=== PATIENT | female | born 1960 | race Caucasian/White ===

== ENCOUNTER → 2016-09-21 | Outpatient (CLI) | payer BC ==
[2016-09-21 14:25] LABS: ALT 55 U/L (9-52); AST 32 U/L (14-36); Alkaline Phosphatase 90 U/L (38-126); Anion Gap 12 mmol/L; Blood Urea Nitrogen 18 mg/dL (7-17); Calcium 9.7 mg/dL (8.4-10.2); Carbon Dioxide 25 mmol/L (22-30); Chloride 102 mmol/L (98-107); Glucose 98 mg/dL (74-99); Non-African American GFR(MDRD) >60 (>60 ml/min/1.73 sqM); Potassium 4.6 mmol/L (3.5-5.1); Sodium 139 mmol/L (137-145); Total Bilirubin 0.7 mg/dL (0.2-1.3); Total Protein 7.9 g/dL (6.3-8.2)
== END | disposition home or self-care (01) ==
LOC: LABWHC1 13:40
PROVIDERS: ATTEND Internal Medicine Endocrinology, Diabetes & Metabolism
DX: E03.8 Other specified hypothyroidism (principal); Z98.890 Other specified postprocedural states
CPT/HCPCS: 36415; 80053; 82306; 83970; 84443

== ENCOUNTER → 2019-06-10 | Outpatient (CLI) | payer OTHER ==
[2019-06-10 23:45] LABS: African American GFR (CKD) 94.2 (60.0-200.0); Albumin 4.3 g/dL (3.80-4.90); Albumin/Globulin Ratio 1.72 (1.60-3.17); Anion Gap 7.2 mmol/L (4.00-12.00); BUN/Creat Ratio 18.75 Ratio (12.00-20.00); Calcium 9.4 mg/dL (8.7-10.3); Carbon Dioxide 30.8 mmol/L (21.6-31.8); Globulin 2.5 g/dL (1.6-3.3); Non-African American GFR(CKD) 81.3 (60.0-200.0); Potassium 4.3 mmol/L (3.5-5.5); Total Bilirubin 0.3 mg/dL (0.2-1.2); Total Protein 6.8 g/dL (6.2-8.2)
== END | disposition home or self-care (01) ==
LOC: LABWHC1 14:38
PROVIDERS: ATTEND Internal Medicine Endocrinology, Diabetes & Metabolism
DX: E03.8 Other specified hypothyroidism (principal); E55.9 Vitamin D deficiency, unspecified; Z86.39 Personal history of other endocrine, nutritional and metabolic disease
CPT/HCPCS: 36415; 80053; 82306; 83970; 84443

== ENCOUNTER 2019-10-30 08:27 | Day surgery (SDC) | payer OTHER ==
[2019-10-28 12:43] VITALS: BMI 50.1
[~2019-10-30 08:27] MED LIST: LACTATED RINGERS 1,000 ML IV SCH; LIDOCAINE 1% (10MG/ML) FOR IV START INTRADERMA PRN
[2019-10-30 08:47] VITALS: TEMP 98
[2019-10-30] MEDS ORDERED: LIDOCAINE 1% INJ 10MG/ML (20 ML MDV) ONE (09:15)
[2019-10-30] MEDS ORDERED: PROPOFOL 10 MG/ML 20 ML VIAL IV ONE (09:15)
--- NOTE | 2019-10-30 09:31 | P.PCN ---
Date of Procedure: 10/30/19 Procedure(s) Performed: BRIEF HISTORY: Patient is a 59-year-old pleasant female scheduled for an elective colonoscopy as a part of screening for colorectal neoplasia. PROCEDURE PERFORMED: Colonoscopy with biopsy. PREOPERATIVE DIAGNOSIS: Screening for colon cancer. IV sedation per Anesthesia. PROCEDURE: After informed consent was obtained, the patient, was brought into the endoscopy unit. IV sedation was administered by Anesthesia under continuous monitoring. Digital rectal examination was normal. Initially the Olympus CF-160 flexible video colonoscope was then inserted in the rectum, gradually advanced into the cecum without any difficulty. Careful examination was performed as the scope was gradually being withdrawn. Ileocecal valve and the appendiceal orifice were visualized and appeared normal. Prep was excellent. Mucosa of the cecum, ascending colon, appeared normal. In the transverse colon there was a 2 mm polyp that was removed by cold biopsy. Rest of the transverse colon, descending colon, sigmoid colon, and rectum appeared normal. In the proximal rectum there was a 4 mm polyp that was removed by cold biopsy. Retroflexion was performed in the rectum and no lesions were seen. The patient tolerated the procedure well. IMPRESSION: 2 mm transverse colon polyp status post removal by cold biopsy 4 mm proximal rectal polyp status post cold biopsy Rest of the colon appeared normal RECOMMENDATIONS: Findings of this examination were discussed with the patient as well as her family. She was advised to follow with the biopsy results. If the biopsy shows an adenoma she can have a repeat colonoscopy in 5 years.
[2019-10-30 09:34] VITALS: RESP 16
[2019-10-30 09:57] VITALS: BP 105/66; PULSE 85
== END 2019-10-30 10:10 | disposition home or self-care (01) ==
LOC: ORWHC2ENDO 08:27
PROVIDERS: ATTEND Internal Medicine Gastroenterology
DX: Z12.11 Encounter for screening for malignant neoplasm of colon (principal); K63.5 Polyp of colon; K62.1 Rectal polyp; I10 Essential (primary) hypertension; Z79.899 Other long term (current) drug therapy
CPT/HCPCS: 88305; 45380; J2001; J2704

== ENCOUNTER → 2019-12-14 | Outpatient (CLI) | payer OTHER | END | disposition home or self-care (01) | LOC: LABWHC1 10:24 | PROVIDERS: ATTEND Internal Medicine Endocrinology, Diabetes & Metabolism | DX: E03.8 Other specified hypothyroidism (principal) | CPT/HCPCS: 36415; 84443 ==

== ENCOUNTER → 2020-04-25 | Outpatient (CLI) | payer OTHER ==
--- NOTE | 2020-04-27 09:50 | MM ---
Reason for exam: screening (asymptomatic). Last mammogram was performed 1 year and 3 months ago. History: Patient is postmenopausal. Taking unspecified hormones for 10 years beginning at age 36. Physical Findings: A clinical breast exam by your physician is recommended on an annual basis and results should be correlated with mammographic findings. MG 3D Screening Mammo W/Cad Bilateral CC and MLO view(s) were taken. Prior study comparison: January 23, 2019, mammogram, performed at [facility]. November 08, 2017, mammogram, performed at [facility]. There are scattered fibroglandular densities. There is chronic nodularity bilaterally. Benign secretory calcifications bilaterally. No significant changes when compared with prior studies. ASSESSMENT: Benign, BI-RAD 2 RECOMMENDATION: Routine screening mammogram of both breasts in 1 year.
== END | disposition home or self-care (01) ==
LOC: RADMAMWWP 11:10
PROVIDERS: ATTEND Obstetrics & Gynecology
DX: Z12.31 Encounter for screening mammogram for malignant neoplasm of breast (principal)
CPT/HCPCS: 77063; 77067

== ENCOUNTER → 2020-06-21 | Outpatient (CLI) | payer OTHER ==
[2020-06-21 15:52] LABS: African American GFR (CKD) 71.4 (60.0-200.0); Albumin 4.3 g/dL (3.80-4.90); Albumin/Globulin Ratio 1.48 (1.60-3.17); Anion Gap 7.6 mmol/L (4.00-12.00); Calcium 9.3 mg/dL (8.7-10.3); Carbon Dioxide 27.4 mmol/L (21.6-31.8); Globulin 2.9 g/dL (1.6-3.3); Non-African American GFR(CKD) 61.6 (60.0-200.0); Total Bilirubin 0.4 mg/dL (0.2-1.2); Total Protein 7.2 g/dL (6.2-8.2)
== END | disposition home or self-care (01) ==
LOC: LABWHC1 07:25
PROVIDERS: ATTEND Internal Medicine Endocrinology, Diabetes & Metabolism
DX: E03.9 Hypothyroidism, unspecified (principal); E55.9 Vitamin D deficiency, unspecified; Z86.39 Personal history of other endocrine, nutritional and metabolic disease
CPT/HCPCS: 36415; 80053; 82306; 83970; 84443

== ENCOUNTER → 2020-10-26 | Outpatient (CLI) | payer OTHER ==
[2020-10-26 09:16] LABS: ALT 32 U/L (4-34); AST 32 U/L (14-36); African American GFR (CKD) >90 (>60 ml/min/1.73 sqM); Albumin 4.1 g/dL (3.5-5.0); Alkaline Phosphatase 81 U/L (38-126); Anion Gap 9 mmol/L; Blood Urea Nitrogen 17 mg/dL (7-17); Calcium 9.7 mg/dL (8.4-10.2); Carbon Dioxide 28 mmol/L (22-30); Chloride 102 mmol/L (98-107); Glucose 111 mg/dL (74-99); Non-African American GFR(CKD) >90 (>60 ml/min/1.73 sqM); Potassium 4.4 mmol/L (3.5-5.1); Sodium 139 mmol/L (137-145); Total Bilirubin 0.5 mg/dL (0.2-1.3); Total Protein 7.2 g/dL (6.3-8.2)
--- NOTE | 2020-10-26 16:28 | XR ---
EXAMINATION TYPE: XR lumbosacral spine min 4V DATE OF EXAM: 10/26/2020 CLINICAL HISTORY: Right lower back pain TECHNIQUE: Frontal, lateral, and oblique images of the lumbar spine are obtained. COMPARISON: None FINDINGS: There are 5 lumbar type vertebral bodies identified. The lumbar spine shows satisfactory alignment without evidence of acute fracture or dislocation. Vertebral body heights and disk space he ights are within normal limits. There is minimal endplate sclerosis and lower lumbar facet arthropath y of the lower lumbar spine with osteophytosis at L5-S1. IMPRESSION: Lower lumbar disc disease and osteoarthritic changes.
--- NOTE | 2020-10-27 07:20 | BD ---
EXAMINATION TYPE: Axial Bone Density DATE OF EXAM: 10/26/2020 COMPARISON: 09/13/2014 CLINICAL HISTORY: Loss of height Height: 62.5 IN Weight: 278 LBS RISK FACTORS HISTORY OF: Family History of Osteoporosis: YES Active: MODERATE Postmenopausal woman: ABLATION AGE 45 MEDICATIONS: Thyroid Medications: YES Which medication: TIROSENT How Lon+ YEARS Additional Medications: VIT D TWICE PER MONTH, TIROSENT, LISINOPRIL, ZOLOFT, WATER PILL EXAM MEASUREMENTS: Bone mineral densitometry was performed using the [facility]. Bone mineral density as measured about the Lumbar spine is: ----- L1-L4(G/cm2): 1.337 T Score Values are as follows: ----- L2: -0.3 ----- L3: 1.0 ----- L4: 2.7 ----- L1-L4: 1.3 Bone mineral density has: Increased 9.1% since study of: 09/13/2014 Bone mineral density about the R hip (g/cm2): 1.022 Bone mineral density about the L hip (g/cm2): 1.092 T Score values are as follows: -----R Neck: -0.1 -----L Neck: 0.4 -----R Total: 0.8 -----L Total: 1.0 Bone mineral density has: Increased 0.4% since study of: 09/13/2014 IMPRESSION: Normal bone mineral density. NOTE: T-SCORE=SD OF THE YOUNG ADULT MEAN.
== END | disposition home or self-care (01) ==
LOC: RADBDWWP 07:13
PROVIDERS: ATTEND Internal Medicine Endocrinology, Diabetes & Metabolism
DX: M51.36 Other intervertebral disc degeneration, lumbar region (principal); M47.816 Spondylosis without myelopathy or radiculopathy, lumbar region
CPT/HCPCS: 72110; 77080; 80053; 82306; 83970; 84443; 84480

== ENCOUNTER → 2021-09-27 | Outpatient (CLI) | payer OTHER ==
--- NOTE | 2021-10-03 13:44 | MM ---
Reason for Exam: Screening (asymptomatic). Last mammogram was performed 1 year(s) and 5 month(s) ago. Patient History: Menarche at age 11. First Full-Term at age 21. Postmenopausal. Currently using Unspecified Hormone, beginning at age 36 for 10 years. Sister had breast cancer at or over age 50. Risk Values: Neva 5 year model risk: 3.1%. NCI Lifetime model risk: 14.4%. Prior Study Comparison: 11/08/2017 Screening Mammogram, [facility]. 01/23/2019 Screening Mammogram, [facility]. 04/25/2020 Bilateral Screening Mammogram, [facility]. Tissue Density: There are scattered fibroglandular densities. Findings: Analyzed By CAD. There are scattered benign-appearing round and linear calcifications redemonstrated throughout both breasts. There is no suspicious group of microcalcifications or new suspicious mass in either breast. Overall Assessment: Benign, BI-RAD 2 Management: Screening Mammogram of both breasts in 1 year. A clinical breast exam by your physician is recommended on an annual basis and results should be correlated with mammographic findings. Electronically signed and approved by: Pineda Gary M.D.
== END | disposition home or self-care (01) ==
LOC: RADMAMWWP 09:57
PROVIDERS: ATTEND Internal Medicine
DX: Z12.31 Encounter for screening mammogram for malignant neoplasm of breast (principal); Z80.3 Family history of malignant neoplasm of breast
CPT/HCPCS: 77063; 77067

== ENCOUNTER → 2021-11-25 | Outpatient (CLI) | payer OTHER ==
[2021-11-25 18:24] LABS: African American GFR (CKD) 108.4 (60.0-200.0); Albumin 4.3 g/dL (3.8-4.9); Albumin/Globulin Ratio 1.39 (1.60-3.17); Anion Gap 11.5 mmol/L (10.00-18.00); BUN/Creat Ratio 24.14 Ratio (12.00-20.00); Blood Urea Nitrogen 16.9 mg/dL (9.0-27.0); Calcium 9.6 mg/dL (8.7-10.3); Carbon Dioxide 26.5 mmol/L (20.0-27.5); Globulin 3.1 g/dL (1.6-3.3); Non-African American GFR(CKD) 93.5 (60.0-200.0); Potassium 4.4 mmol/L (3.5-5.5); Total Bilirubin 0.3 mg/dL (0.30-1.20); Total Protein 7.4 g/dL (6.2-8.2)
== END | disposition home or self-care (01) ==
LOC: LABWHC1 10:49
PROVIDERS: ATTEND Internal Medicine Endocrinology, Diabetes & Metabolism
DX: E03.8 Other specified hypothyroidism (principal); E55.9 Vitamin D deficiency, unspecified
CPT/HCPCS: 36415; 80053; 82306; 83970; 84443

== ENCOUNTER 2021-12-19 05:58 | Observation (INO) | payer OTHER ==
[2021-12-14 13:51] VITALS: BMI 47.2
--- NOTE | 2021-12-18 09:10 | P.HPOR ---
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 She's tried conservative treatment with persistence of her symptoms. She has a difficult time with normal weightbearing activities. Review of Systems As per HPI Past Medical History Past Medical History: Hypertension, Osteoarthritis (OA), Thyroid Disorder History of Any Multi-Drug Resistant Organisms: None Reported Past Surgical History: Section, Cholecystectomy, Tonsillectomy Additional Past Surgical History / Comment(s): COLONOSCOPY, PARATHYROID SX, C/S X2 Past Anesthesia/Blood Transfusion Reactions: No Reported Reaction Smoking Status: Never smoker - Past Family History Mother Family Medical History: No Reported History Sister(s) Family Medical History: Cancer Medications and Allergies Home Medications Medication Instructions Recorded Confirmed Type Levothyroxine Sodium [Tirosint] 150 mcg PO DAILY 10/28/19 12/14/21 History Lisinopril-Hctz 10-12.5 mg 1 tab PO DAILY 10/28/19 12/14/21 History [Zestoretic 10-12.5] Sertraline [Zoloft] 50 mg PO DAILY 10/28/19 12/14/21 History Biofreeze(Dose Unknown) 1 applicate TOPICAL DIRECTED PRN 12/14/21 12/14/21 History Ergocalciferol [Vitamin D2 (1250 1,250 mcg PO QMONTHLY 12/14/21 12/14/21 History Mcg = [id number] Iu)] Ibuprofen 800 mg PO Q8H PRN 12/14/21 12/14/21 History Allergies Allergy/AdvReac Type Severity Reaction Status Date / Time No Known Allergies Allergy Verified 12/14/21 13:39 Physical Examination - Knee right Appearance: effusion, varus alignment in stance Effusion grade: grade 2 Tenderness with palpation: anterior, medial Pain: throughout ROM Gait: limping ROM: extension: -10 degrees ROM: flexion: 100 degrees Strength: extension: 5/5 Strength: flexion: 5/5 Meniscal tests: medial meniscal tests: positive Results Patient is a well-developed well-nourished female of endomorphic habitus. She is a proximally 5 foot 2, 270 pounds. HEENT exam is nonfocal, neck is supple. She has painless passive motion of the right hip. Straight leg raise is negative. Active motion right knee -12/104 of flexion. Collaterals are stable, Tracy's negative, Chucho's is equivocal. Her distal neurovascular appears intact in the right lower extremity. - Diagnostic results Knee x-ray: image reviewed (3 views of the right knee obtain the office show severe medial and patellofemoral compartment narrowing with subchondral sclerosis and [id number] changes.) Assessment and Plan Assessment: Right knee severe medial and patellofemoral compartment osteoarthrosis Obesity Plan: I talked to the patient at length regarding her condition along with treatment options. At this point she is quite limited because of pain related to her osteoarthrosis despite previous conservative measures. After thorough discussion she opts to proceed with surgery. We will plan to proceed with right total knee arthroplasty. We will institute DVT prophylaxis postoperatively. Time with Patient: Less than 30
[~2021-12-19 05:58] MED LIST changes: +ACETAMINOPHEN TAB 500 MG TAB PO PRN; +HYDROmorphone 0.5 MG/0.5 ML SYRINGE IVP PRN; -LACTATED RINGERS 1,000 ML IV SCH; +MELOXICAM 7.5 MG TAB PO PRN; +ONDANSETRON 4 MG/2 ML VIAL IVP ONE; +TRANEXAMIC ACID IN NACL,ISO-OS 1,000 MG in SALINE 1 100ML.BAG IVPB PRN; +ceFAZolin 3 GM in SODIUM CHLORIDE 0.9% 100 ML IVPB PRN
[2021-12-19] MEDS: LACTATED RINGERS 1,000 ML IV SCH (06:55)
[2021-12-19] MEDS ORDERED: DEXAMETHASONE SOD PHOSPHATE 4 MG/ML 1 ML VIAL IVP ONE (06:56)
[2021-12-19] MEDS ORDERED: fentaNYL (PF) 50 MCG/ML 2 ML AMP IVP ONE (07:07)
[2021-12-19] MEDS ORDERED: MIDAZOLAM 2 MG/2 ML VIAL IVP ONE (07:07)
[2021-12-19] MEDS ORDERED: TRANEXAMIC ACID IN NACL,ISO-OS 1,000 MG/100 ML BAG ONE (07:40)
[2021-12-19] MEDS ORDERED: SODIUM CHLORIDE 0.9% (PF) 10 ML VIAL ONE (07:40)
[2021-12-19] MEDS ORDERED: ROPIVACAINE 5 MG/ML 30 ML VIAL ONE (07:40)
[2021-12-19] MEDS ORDERED: PROPOFOL 10 MG/ML 20 ML VIAL IV ONE (07:40)
[2021-12-19] MEDS ORDERED: HYDROmorphone (PF) 1 MG/ML ONE (07:40)
[2021-12-19] MEDS ORDERED: PHENYLEPHRINE-0.9% NACL SYG 1,000 MCG/10 ML SYRINGE ONE (07:40)
[2021-12-19] MEDS ORDERED: LIDOCAINE 2% INJ 20 MG/ML (2 ML VIAL) ONE (07:40)
[2021-12-19] MEDS ORDERED: MIDAZOLAM 2 MG/2 ML VIAL ONE (07:40)
--- NOTE | 2021-12-19 09:02 | P.ANPRN ---
Procedure Note - Anesthesia - Nerve Block Performed Right Adductor Canal Infusion Time Out Performed: Yes (07) Date of Procedure: 12/19/21 Procedure Start Time: :07 Procedure Stop Time: 07:12 Location of Patient: PreOp Indication: Acute Post-Operative Pain, Requested by Surgeon Specifically requested for management of pain by DrTameka: Oni Muse Sedation Type: Sedate with meaningful contact maintained Preparation: Sterile Prep, Sterile Dressing Position: Supine Catheter Depth at Skin (cm): 9 Catheter: Indwelling Needle Types: Pajunk Needle Gauge: Other (see comment) (16) Ultrasound used to visualize needle placement: Yes Ultrasound used to observe medication spread: Yes Injectate: 0.5% Ropivacaine (see comment for volume) (15cc + 5cc nacl pf) Blood Aspirated: No Pain Paresthesia on Injection Noted: No Resistance on Injection: Normal Image Stored and Saved: Yes Events: Uneventful and Well Tolerated
--- NOTE | 2021-12-19 09:03 | P.ANPRN ---
Procedure Note - Anesthesia - Nerve Block Performed Right iPack Single Time Out Performed: Yes (705) Date of Procedure: 12/19/21 Procedure Start Time: 07:13 Procedure Stop Time: 07:17 Location of Patient: PreOp Indication: Acute Post-Operative Pain, Requested by Surgeon Specifically requested for management of pain by DrTameka: Oni Muse Sedation Type: Sedate with meaningful contact maintained Preparation: Sterile Prep Position: Supine Catheter: None Needle Types: Pajunk Needle Gauge: 21 Ultrasound used to visualize needle placement: Yes Ultrasound used to observe medication spread: Yes Injectate: 0.5% Ropivacaine (see comment for volume) (15cc + 5cc nacl pf) Blood Aspirated: No Pain Paresthesia on Injection Noted: No Resistance on Injection: Normal Image Stored and Saved: Yes Events: Uneventful and Well Tolerated
[2021-12-19] MEDS ORDERED: NALOXONE 0.4 MG/ML 1 ML VIAL IV PRN (09:16)
[2021-12-19] MEDS ORDERED: MAGNESIUM HYDROXIDE 2,400 MG/10 ML CUP PO PRN (09:16)
[2021-12-19] MEDS ORDERED: HYDROcodone/APAP 5-325MG 1 EACH TAB PO PRN (09:16)
[2021-12-19] MEDS ORDERED: ONDANSETRON 4 MG/2 ML VIAL IVP PRN (09:16)
[2021-12-19] MEDS ORDERED: LACTATED RINGERS 1,000 ML IV ONE (09:29)
--- NOTE | 2021-12-19 09:43 | P.OP ---
Date of Procedure: 12/19/21 Preoperative Diagnosis: Right knee severe tricompartmental osteoarthrosis Postoperative Diagnosis: Same Procedure(s) Performed: Right total knee arthroplastycementedposterior stabilized Implants: Depuy Attune size 5 narrow cemented femoral component, size 4 cemented tibial component, 10 mm articular surface, 32 mm cemented patellar component. This is a posterior stabilized implant. Anesthesia: regional, spinal Surgeon: Ayden Roberts Umbrella Tipper Machine #1: Edmond Ziegler Estimated Blood Loss (ml): 50 Pathology: other (Bone fragments) Condition: stable Disposition: PACU Indications for Procedure: The patient's a 61-year-old female who presents with progressive right knee pain secondary to osteoarthrosis despite conservative treatment. A thorough discussion of the risks and benefits of operative intervention versus continued conservative measures was made with patient. She opted to proceed with surgery. Operative risks to include infection, neurovascular injury, development of blood clots, fracture, possible component loosening/failure need for subsequent procedures was discussed. Informed consent was obtained. Operative Findings: As below Description of Procedure: The patient was brought to the operating room, and after induction of spinal anesthesia the right lower extremity was prepped and draped in a normal fashion. The tourniquet was inflated to 270 mm marker. A longitudinal incision extending 3 finger breaths above the superior pole of patella extending to the medial aspect the tibial tubercle was then made. The skin and subcutaneous tis sues were divided sharply. Electrocautery was used for hemostasis. A medial parapatellar arthrotomy was performed. The medial soft tissues to include the superficial and deep portions of the medial collateral ligament were elevated subperiosteally. The patella was everted. A portion of the retropatellar fat pad was excised sharply. The anterior cruciate ligament was sacrificed. Blunt retractors were placed. A starting hole was made in the distal femur 1 cm anterior to the posterior cruciate ligament origin. An intramedullary femoral guide was then inserted planning on 5 valgus distal cut with 9 mm distal resection. The cutting block was pinned in place. The distal cut was then made. The posterior referencing sizing guide was utilized. I felt size 5 narrow was most appropriate. 3 of external rotation was built into the system and verified off the trans-epicondylar axis and the posterior condyles. The cutting block was pinned in place. The anterior, posterior, and chamfer cuts then made. Bone fragments were removed. The intercondylar guide was placed and the notch cut was made with a sagittal saw. The bone block was removed in one fragment. The trial component was then placed. There is good anterior to posterior and medial to lateral fit. The distal peg holes were drilled. The trial component was removed. Attention was then paid towards preparing the pro ximal femur. An extra medullary guide was utilized in line with the tibial shaft and second metatarsal distally. I planned on 2 mm resection from the medial compartment. The cutting block was pinned in place. The proximal tibial cut was then made. The bone was removed in one fragment. The remnants of the medial and lateral menisci were excised at the capsular junction with electrocautery. The tibia sized most appropriately at size 4. The trial femoral and tibial components were placed along with a 10 mm articular surface. I was able to obtain full flexion and extension with internal and external rotation. After several flexion and extension cycles, the tibial rotation was marked with electrocautery line with the medial one third of the tibial tubercle. Attention was then paid towards preparing the patella. A patella reamer was utilized taking stem to 14 mm of bone stock. A good flush cut was made. The patella sized most appropriately 32 mm. The peg holes were drilled. The trial components placed. I had good patellofemoral tracking with no hands technique. The trial components were then removed. The tibia was prepared in the appropriate rotation with appropriate drill and keel punch. The posterior osteophytes were removed with a curved osteotome. The flexion and extension gaps were checked and felt to be symmetric at 10 mm. A trial components were then removed. The bony surfaces were prepared with pulsatile lavage and dried. The tibial component was then cemented place was fully seated. Excess cement was removed. The femoral component cemented place and was fully seated. Excess cement was removed. The trial 10 mm articular surface was placed and the knee was put in full extension. The patella component was cemented place. After the cement had sufficiently hardened, the knee was again taken through a range of motion. Again I was able to obtain full flexion and extension with varus and valgus stress. The trial 10 mm articular surface was removed and the final one inserted. This was fully seated. Care was taken to avoid any soft tissue interposition. Pulsatile lavage was again utilized. The medial parapatellar arthrotomy was closed with #2 Ethibond suture. The tourniquet was deflated with approximately 60 minutes total tourniquet time. Final hemostasis was obtained with the cautery. There was minimal bleeding therefore a deep drain was not placed. The subcutaneous tissues were reapproximated with interrupted 2-0 Vicryl sutures. The skin was reapproximated with 3-0 subcuticular strata fix suture. Skin tape and adhesive was applied. A sterile dressing was applied. The patient was awoken from sedation and transferred to recovery room in good condition. Blood loss was estimated at 50 mL. No complications were incurred. Sponge and needle counts were correct at the end of the case. Feroz GABRIEL assisted during the major components of this case to include exposure, bone resection, implantation, and closure.
[2021-12-19] MEDS ORDERED: ROPIVACAINE 0.2%-NS ON-Q PUMP 2 MG/ML EACH MISCELLANE ONE (10:07)
--- NOTE | 2021-12-19 10:20 | XR ---
EXAMINATION TYPE: XR knee limited RT DATE OF EXAM: 12/19/2021 CLINICAL HISTORY: Right knee pain and arthritis status post total knee replacement. TECHNIQUE: Portable AP and crosstable lateral views of the right knee are obtained immediately posto peratively. COMPARISON: None FINDINGS: Metallic hardware from total right knee arthroplasty is seen and appears satisfactory in a lignment and position. There is evidence of recent surgery with diffuse subcutaneous gas and soft ti ssue swelling noted. IMPRESSION: METALLIC HARDWARE FROM TOTAL RIGHT KNEE ARTHROPLASTY IS SATISFACTORY IN ALIGNMENT.
[2021-12-19] MEDS: HYDROmorphone 0.5 MG/0.5 ML SYRINGE IVP PRN (19:45)
[2021-12-19] MEDS: HYDROmorphone 1 MG/ML 1 ML SYRINGE IVP PRN (22:30)
[2021-12-19] MEDS: ceFAZolin 3 GM in SODIUM CHLORIDE 0.9% 100 ML IVPB SCH (22:30)
[2021-12-19] MEDS: SENNOSIDES-DOCUSATE SODIUM 1 EACH TAB PO SCH (22:31)
[2021-12-20] MEDS: HYDROcodone/APAP 7.5-325MG 1 EACH TAB PO PRN ×4 (02:11→20:55)
[2021-12-20] MEDS: ceFAZolin 3 GM in SODIUM CHLORIDE 0.9% 100 ML IVPB SCH (04:44)
[2021-12-20] MEDS: LACTATED RINGERS 1,000 ML IV SCH (04:45)
[2021-12-20] MEDS: HYDROmorphone 1 MG/ML 1 ML SYRINGE IVP PRN (06:19)
--- NOTE | 2021-12-20 07:41 | P.PN ---
Progress Note - Text Progress Note Date: 12/20/21 patient was seen and evaluated at bedside. Status post postoperative day 1 for right total knee arthroplasty patient had adductor canal catheter for postop pain control. Patient rated pain at rest 6 out of 10 in severity. Patient describes pain is aching, throbbing type on the sides of the knee and back of the knee. Patient started walking with support. With activity patient pain levels are 6-8 out of 10 in severity. With the help of oral pain medications pain levels are tolerable. Patient denied any weakness/ numbness in lower extremities. patient denied any fever, pain over the catheter site. Physical exam: Patient vital signs stable Patient is alert awake oriented 3 responding to all questions appropriately Examination of the catheter site showed dressing intact, no leaking fluid around the catheter, no redness, no tenderness over the catheter insertion area. plan: status post postoperative day 1 for right total knee arthroplasty with adductor canal catheter for pain control. Patient was discussed to continue the medication at the rate of 8 mL per hour until the pump is completely empty and instructed the patient how to discontinue the catheter.
[2021-12-20] MEDS: RIVAROXABAN 10 MG TAB PO SCH (07:54)
--- NOTE | 2021-12-20 10:24 | P.PN ---
Subjective Progress Note Date: 12/20/21 Principal diagnosis: Status post right total knee arthroplasty Patient was evaluated today at bedside, she is resting in her hospital chair. Patient is complaining of some increasing pain today, she has required the use of IV Dilaudid. She did okay with physical therapy, she's been utilizing a walker. She is urinating with no difficulty. She currently denies any headaches, lightheadedness, chest pain or shortness of breath. Objective - Vital Signs Vital signs: Vital Signs Temp 98.4 F 12/20/21 07:26 Pulse 97 12/20/21 07:26 Resp 17 12/20/21 07:26 BP 101/68 12/20/21 07:26 Pulse Ox 91 L 12/20/21 07:26 FiO2 Intake & Output 12/19/21 12/20/21 12/20/21 18:59 06:59 18:59 Intake Total 900 Output Total 50 Balance 850 Intake: IV 900 Output: Estimated Blood Loss 50 Other: Voiding Method Toilet # Voids 1 - Exam Right lower extremity : Incision is clean, dry, and intact. The exofin fusion tape is in good condition. There is minimal soft tissue swelling and ecchymosis surrounding the medial and lateral aspects of the incision. Calf is soft, no tenderness with palpation. Plantar flexion, dorsiflexion, EHL, FHL are intact. Sensory exam to light touch throughout the extremity is intact, dorsal pedis pulses 2+. Assessment and Plan Assessment: Postoperative day #1 status post right total knee arthroplasty Plan: Pain control, continue with oral [place]. Okay used Dilaudid as needed for severe breakthrough pain DVT prophylaxis, continue Xarelto 10 mg daily during hospital stay Icing and elevating techniques discussed Encourage incentive spirometer Continue PT/OT, weight-bear as tolerated with walker Medical recommendations Discharge planning: Due to patient's pain control, will plan to keep patient overnight with hopeful discharge on 12/21/2021 Time with Patient: Less than 30
[2021-12-20 10:29] LABS: Basophils # (A) 0.02 X 10*3/uL (0.00-0.10); Basophils % (A) 0.2 %; Eosinophils # (A) 0.03 X 10*3/uL (0.04-0.35); Eosinophils % (A) 0.3 %; HCT 36.3 % (37.2-46.3); HGB 11.7 g/dL (12.0-15.0); Immature Grans, Automated 0.4 %; Lymphocytes # (A) 2.09 X 10*3/uL (0.90-5.00); Lymphocytes % (A) 19.6 %; MCHC 32.2 g/dL (32.0-37.0); MCV 90.1 fL (80.0-97.0); Monocytes # (A) 0.91 X 10*3/uL (0.20-1.00); Monocytes % (A) 8.6 %; NRBC Per 100 WBC 0 /100 WBCS (0.0-0.0); Neutrophils # (A) 7.55 X 10*3/uL (1.80-7.70); Neutrophils % (A) 70.9 %; Platelet Count 291 X 10*3/uL (140-440); RBC 4.03 X 10*6/uL (4.10-5.20); RDW 12.7 % (11.5-14.5); WBC 10.64 X 10*3/uL (4.50-10.00)
[2021-12-20] MEDS: HYDROmorphone 0.5 MG/0.5 ML SYRINGE IVP PRN ×2 (11:00→19:26)
[2021-12-20] MEDS ORDERED: METHYL SALICYLATE/MENTHOL CREAM 5 OZ TOPICAL PRN (14:35)
[2021-12-20] MEDS ORDERED: ERGOCALCIFEROL 1,250 MCG (50,000 IU) CAPSULE PO SCH (15:00)
--- NOTE | 2021-12-20 16:04 | P.CONS ---
History of Present Illness - Reason for Consult Consult date: 12/20/21 Medical management postop right knee arthroplasty - History of Present Illness This is a pleasant 61-year-old female who follows with Dr. Peterson in the outpatient setting as her primary care provider and was recently admitted under orthopedic services for elective right total knee arthroplasty and is being closely monitored. Patient reports a past medical history of hypertension, hypothyroidism, and anxiety and follows with Dr. Peterson outpatient. Patient did to her presurgical clearance with her primary care provider prior to surgery. Patient was able to work with physical therapy today with some increasing pain and is being evaluated and monitored overnight with possible discharge in 24 hours. Recommend resuming home medications and monitoring vital signs closely. Incentive spirometer encouraged at least 10 times every hour while awake. Recommend physical therapy working daily with possible discharge in 24 hours. Recommend outpatient follow-up with primary care provider on discharge. WBC mildly elevated at 10.6 for most likely reactive as patient is afebrile denies chest pain or shortness of breath. Patient denies dysuria or pain with urination. Review of systems: Constitutional: No reports of fatigue, fever, or chills Cardiovascular: No reports of chest pain or palpitations Respiratory: No reports of shortness of breath or cough GI: No reports of nausea, no reports of of vomiting, reports passing some gas no bowel movement : No reports of dysuria or retention Neurovascular: reports of generalized weakness, and some right knee pain All medications have been reviewed Active Medications Hydrocodone Bitart/Acetaminophen (Hydrocodone/Apap 5-325mg 1 Each Tab) 1 each PO Q6HR PRN PRN Reason: Pain Scale 1 to 5 Stop: 01/18/22 09:17 Hydrocodone Bitart/Acetaminophen (Hydrocodone/Apap 7.5-325mg 1 Each Tab) 1 each PO Q6H PRN PRN Reason: Pain Scale 6 to 7 Stop: 01/18/22 09:17 Hydrocodone Bitart/Acetaminophen (Hydrocodone/Apap 7.5-325mg 1 Each Tab) 2 each PO Q6H PRN PRN Reason: Pain Scale 8-10 Last Admin: 12/20/21 13:07 Dose: 2 each Ergocalciferol (Ergocalciferol 1,250 Mcg (50,000 Iu) Capsule) 1,250 mcg PO QMONTHLY [facility] Lisinopril/HCTZ (Lisinopril-Hctz -.5 Mg 1 Each Tab) 1 each PO DAILY [facility] Hydromorphone HCl (Hydromorphone 0.5 Mg/0.5 Ml Syringe) 0.5 mg IVP Q3HR PRN PRN Reason: Pain Scale 4 to 6 Stop: 01/18/22 09:17 Last Admin: 12/20/21 11:00 Dose: 0.5 mg Hydromorphone HCl (Hydromorphone 1 Mg/Ml 1 Ml Syringe) 1 mg IVP Q3HR PRN PRN Reason: Pain Scale 7 to 10 Stop: 01/18/22 09:17 Last Admin: 12/20/21 06:19 Dose: 1 mg Lactated Ringer's (Lactated Ringers) 1,000 mls @ 20 mls/hr IV .Q24H [facility] Stop: 01/18/22 05:39 Last Admin: 12/20/21 04:45 Dose: Not Given Levothyroxine Sodium (Levothyroxine 75 Mcg Tab) 150 mcg PO DAILY@0630 [facility] Lidocaine HCl (Lidocaine 1% (10mg/Ml) For Iv Start) 0.1 ml INTRADERMA PER PROTOCOL PRN PRN Reason: IV Start Stop: 01/18/22 05:39 Magnesium Hydroxide (Magnesium Hydroxide 2,400 Mg/10 Ml Cup) 2,400 mg PO DAILY PRN PRN Reason: Constipation Stop: 01/18/22 09:17 Methyl Salicylate (Methyl Salicylate/Menthol Cream 5 Oz) 1 applic TOPICAL DAILY PRN PRN Reason: Pain Naloxone HCl (Naloxone 0.4 Mg/Ml 1 Ml Vial) 0.2 mg IV Q2M PRN PRN Reason: Opioid Reversal Stop: 01/18/22 09:17 Ondansetron HCl (Ondansetron 4 Mg/2 Ml Vial) 4 mg IVP Q8HR PRN PRN Reason: Nausea And Vomiting Stop: 01/18/22 09:17 Rivaroxaban (Rivaroxaban 10 Mg Tab) 10 mg PO DAILY [facility]; Protocol Stop: 01/01/22 09:01 Last Admin: 12/20/21 07:54 Dose: 10 mg Senna/Docusate Sodium (Sennosides-Docusate Sodium 1 Each Tab) 2 each PO HS [facility] Stop: 01/18/22 21:01 Last Admin: 12/19/21 22:31 Dose: 2 each Sertraline HCl (Sertraline 50 Mg Tab) 50 mg PO DAILY [facility] PHYSICAL EXAMINATION: GENERAL: The patient is alert and oriented x4, Well developed, well nourished. Morbidly obese HEENT: Pupils are round and equally reacting to light. EOMI. no scleral icterus. No conjunctival pallor. Normocephalic, atraumatic. No pharyngeal erythema. No thyromegaly. CARDIOVASCULAR: S1 and S2 muffled PULMONARY: diminished breath sounds bilaterally with no wheezing or rhonchi noted. ABDOMEN: soft. Nontender on exam. obese. non-distended, normoactive bowel sounds. No palpable organomegaly. MUSCULOSKELETAL: No joint swelling or deformity. EXTREMITIES: No cyanosis, clubbing, or pedal edema. Right knee dressing is currently dry and intact with ice pack noted an elevated on some pillows NEUROLOGICAL: Gross neurological examination did not reveal any focal deficits. Diffuse weakness SKIN: No rashes. Assessment: Status post right total knee arthroplasty postop day 1 Mild leukocytosis, most likely reactive secondary to above History of hypertension Hypothyroidism Osteoarthritis History of anxiety GI prophylaxis: Protonix DVT prophylaxis, on Xarelto Full code Plan: Recommend to continue with current medications and management per orthopedic services. Recommend resuming home medications and monitoring vital signs closely. Patient with an incentive spirometer at the bedside and encourage the patient to continue using at least 10 times every hour while awake. Recommend physical therapy daily and patient was able to work with physical therapy today. Recommend elevating right lower extremity and continue with ice packs and pain management per orthopedic services. Patient follows with Dr. Peterson in the outpatient setting and recommend outpatient follow-up on discharge. We will continue to follow with orthopedics during hospitalization. Thank you for this consultation. Possible discharge in 24 hours. The impression and plan of care has been dictated by Dejah Zarate, nurse practitioner as directed. Dr. Kirby DALTON I have performed a history and examination and MDM of this patient, discussed the same with the dictator, and agree with the dictator's assessment and plan as written ,documented as a scribe. Based on total visit time, I have performed more than 50% of the visit. Any additional findings or plans will be noted. Past Medical History Past Medical History: Hypertension, Osteoarthritis (OA), Thyroid Disorder History of Any Multi-Drug Resistant Organisms: None Reported Past Surgical History: Section, Cholecystectomy, Tonsillectomy Additional Past Surgical History / Comment(s): COLONOSCOPY, PARATHYROID SX, C/S X2 Past Anesthesia/Blood Transfusion Reactions: No Reported Reaction Smoking Status: Never smoker - Past Family History Mother Family Medical History: No Reported History Sister(s) Family Medical History: Cancer Medications and Allergies Home Medications Medication Instructions Recorded Confirmed Type Levothyroxine Sodium [Tirosint] 150 mcg PO DAILY 10/28/19 12/14/21 History Lisinopril-Hctz 10-12.5 mg 1 tab PO DAILY 10/28/19 12/14/21 History [Zestoretic 10-12.5] Sertraline [Zoloft] 50 mg PO DAILY 10/28/19 12/14/21 History Biofreeze(Dose Unknown) 1 applicate TOPICAL DIRECTED PRN 12/14/21 12/14/21 History Ergocalciferol [Vitamin D2 (1250 1,250 mcg PO QMONTHLY 12/14/21 12/14/21 History Mcg = 63978 Iu)] Ibuprofen 800 mg PO Q8H PRN 12/14/21 12/14/21 History Allergies Allergy/AdvReac Type Severity Reaction Status Date / Time No Known Allergies Allergy Verified 12/19/21 06:31 Physical Exam Vitals: Vital Signs Temp Pulse Resp BP Pulse Ox 12/20/21 07:26 98.4 F 97 17 101/68 91 L 12/20/21 05:56 137/71 12/20/21 02:00 98.2 F 105 H 20 181/72 94 L 12/19/21 19:22 97.8 F 86 17 122/75 94 L Intake and Output 12/19/21 12/20/21 12/20/21 22:59 06:59 14:59 Other: Voiding Method Toilet # Voids 1 1 Results CBC & Chem 7: 12/20/21 06:52 Labs: Abnormal Lab Results - Last 24 Hours (Table) 12/20/21 Range/Units 06:52 WBC 10.64 H (4.50-10.00) X 10*3/uL RBC 4.03 L (4.10-5.20) X 10*6/uL Hgb 11.7 L (12.0-15.0) g/dL Hct 36.3 L (37.2-46.3) % MPV 9.0 L (9.5-12.2) fL Eosinophils # 0.03 L (0.04-0.35) X 10*3/uL
[2021-12-20] MEDS: PANTOPRAZOLE 40 MG TABLET PO SCH (17:45)
[2021-12-20] MEDS: SERTRALINE 50 MG TAB PO SCH (17:45)
[2021-12-20] MEDS: SENNOSIDES-DOCUSATE SODIUM 1 EACH TAB PO SCH (20:56)
[2021-12-21 02:36] VITALS: TEMP 98.2
[2021-12-21] MEDS: LACTATED RINGERS 1,000 ML IV SCH (05:27)
[2021-12-21] MEDS: HYDROcodone/APAP 7.5-325MG 1 EACH TAB PO PRN ×2 (05:46→12:33)
[2021-12-21] MEDS ORDERED: LEVOTHYROXINE 75 MCG TAB PO SCH (06:30)
[2021-12-21 08:03] VITALS: BP 165/82; PULSE 94; RESP 18
[2021-12-21] MEDS: PANTOPRAZOLE 40 MG TABLET PO SCH (08:32)
[2021-12-21] MEDS: RIVAROXABAN 10 MG TAB PO SCH (08:32)
[2021-12-21] MEDS: SERTRALINE 50 MG TAB PO SCH (08:32)
[2021-12-21] MEDS ORDERED: LISINOPRIL-HCTZ 10-12.5 MG 1 EACH TAB PO SCH (09:00)
--- NOTE | 2021-12-21 11:05 | P.PN ---
Subjective Progress Note Date: 12/21/21 Principal diagnosis: Status post right total knee arthroplasty Patient was evaluated today at bedside, she is resting in her hospital bed. Patient states that the knee is feeling a lot better today, the pain is better controlled. She currently denies any headaches, lightheadedness, chest pain or shortness of breath. Objective - Vital Signs Vital signs: Vital Signs Temp 98.2 F 12/21/21 08:00 Pulse 94 12/21/21 08:00 Resp 18 12/21/21 08:00 BP 165/82 12/21/21 08:00 Pulse Ox 95 12/21/21 08:00 FiO2 Intake & Output 12/20/21 12/21/21 12/21/21 18:59 06:59 18:59 Other: Voiding Method Toilet Toilet # Voids 3 2 - Exam Right lower extremity : Incision is clean, dry, and intact. The exofin fusion tape is in good condition. There is minimal soft tissue swelling and ecchymosis surrounding the medial and lateral aspects of the incision. Calf is soft, no tenderness with palpation. Plantar flexion, dorsiflexion, EHL, FHL are intact. Sensory exam to light touch throughout the extremity is intact, dorsal pedis pulses 2+. - Labs CBC & Chem 7: 12/20/21 06:52 Assessment and Plan Assessment: Postoperative day #2 status post right total knee arthroplasty Plan: Pain control, plan for discharge on [place] 7.5 mg/325 mg DVT prophylaxis, Eliquis 2.5mg bid for 2 weeks at discharge Icing and elevating techniques discussed Encourage incentive spirometer Continue PT/OT, weight-bear as tolerated with walker Medical recommendations Discharge planning: Plan for discharge home today Time with Patient: Less than 30
--- NOTE | 2021-12-21 11:10 | P.DS ---
Providers Date of admission: 12/20/21 07:49 Expected date of discharge: 12/21/21 Attending physician: Ayden Roberts Consults: 12/19/21 09:16 Consult Physician Routine Consulting Provider: Natalia Barker Consult Reason/Comments: medical management Do you want consulting provider notified?: Yes Primary care physician: Josiane Peterson Hospital Course: Date of admission: 12/19/2021 Date of discharge: 12/21/2021 Admission diagnosis: Status post right total knee arthroplasty Discharge diagnosis: Same Attending physician: Dr. Roberts Surgical procedures: Right total knee arthroplasty Brief history: Patient is a 61-year-old female with a history of progressive primary right knee osteoarthritis. At this point patient has failed conservative treatment measures and has opted to proceed with a elective right total knee arthroplasty. Hospital course: Details of patient's surgery can be found in operative report. Patient tolerated the procedure well and was subsequently transported to orthopedic floor. Patient's orthopeidc and medical care was provided daily. Patient had daily laboratory tests performed for evaluation of overall blood counts. Patient had daily physical therapy to include strengthening range of motion as well as education with walker ambulation. Patient was treated with Xarelto for their postoperative DVT prophylaxis during their inpatient stay. Patient was noted to have a relatively uneventful postoperative course. Patient reported satisfactory pain control with oral pain medications by postoperative day 1. Patient showed satisfactory progress with physical therapy. Patient moved steadily through the program and had no difficulty meeting the goals by postoperative day 2. Given patient's otherwise satisfactory course and having met physical therapy goals, plan is to discharge patient home on postoperative day 2. Discharge condition/disposition: Patient will be discharged home in stable condition. Discharge medications: Instructions are given on resumption of patient's normal daily medications per primary care recommendation, in addition patient will be prescribed [place] 7.5 mg/25 mg, senna S, Eliquis 2.5mg. Discharge instructions: 1. Wound care and infection precautions, keep incision dry and covered while showering, no lotions, creams, moisturizers. No soaking, tubs, pools, hottubs. Do not scrub over the incision. 2. Weight-bear as tolerated with walker / cane until follow-up. 3. Ice and elevate when necessary. Do not exceed 20 minutes per hour with ice pack. 4. Utilize compression sleeve until seen at first follow up appointment. 5. Visiting nursing care. 6. Home physical therapy including home CPM. 7. Pain meds and anticoagulants per prescription. 8. Pain medication has potential to cause constipation. Increase oral fluid and fiber intake. Contact primary care provider if you have not had a bowel movement within 48 hours after discharge 9. No anti-inflammatory medication until discussed at first post operative visit, this including Motrin, Aleve, Mobic, Diclofenac. 10. Follow up in office at 2 weeks postop with Feroz Ziegler PA-C/Dani Ortiz 11. Follow up with your primary care doctor 7-10 days after discharge. 12. Contact [facility] with any questions, . Procedures: Right total knee arthroplasty Patient Condition at Discharge: Good Plan - Discharge Summary Discharge Rx Participant: Yes New Discharge Prescriptions: New Apixaban [Eliquis] 2.5 mg PO BID #60 tab HYDROcodone/APAP 7.5-325MG [[place] 7.5] 1 - 2 each PO Q6HR PRN #42 tab PRN Reason: Pain Sennosides/Docusate Sodium [Senna-S 8.6-50 mg Tablet] 1 each PO DAILY PRN #30 tablet PRN Reason: Constipation No Action Sertraline [Zoloft] 50 mg PO DAILY Lisinopril-Hctz 10-12.5 mg [Zestoretic 10-12.5] 1 tab PO DAILY Levothyroxine Sodium [Tirosint] 150 mcg PO DAILY Ibuprofen 800 mg PO Q8H PRN PRN Reason: Pain Biofreeze(Dose Unknown) 1 applicate TOPICAL DIRECTED PRN PRN Reason: Pain Ergocalciferol [Vitamin D2 (1250 Mcg = 53153 Iu)] 1,250 mcg PO QMONTHLY Discharge Medication List Levothyroxine Sodium [Tirosint] 150 mcg PO DAILY 10/28/19 [History] Lisinopril-Hctz 10-12.5 mg [Zestoretic 10-12.5] 1 tab PO DAILY 10/28/19 [History] Sertraline [Zoloft] 50 mg PO DAILY 10/28/19 [History] Biofreeze(Dose Unknown) 1 applicate TOPICAL DIRECTED PRN 12/14/21 [History] Ergocalciferol [Vitamin D2 (1250 Mcg = 64979 Iu)] 1,250 mcg PO QMONTHLY 12/14/21 [History] Ibuprofen 800 mg PO Q8H PRN 12/14/21 [History] Apixaban [Eliquis] 2.5 mg PO BID #60 tab 12/21/21 [Rx] HYDROcodone/APAP 7.5-325MG [[place] 7.5] 1 - 2 each PO Q6HR PRN #42 tab 12/21/21 [Rx] Sennosides/Docusate Sodium [Senna-S 8.6-50 mg Tablet] 1 each PO DAILY PRN #30 tablet 12/21/21 [Rx] Follow up Appointment(s)/Referral(s): Dani Klein, FIDEL [PHYSICIAN [employer]] - 2 Weeks [facility],Equipment [NON-STAFF] - As Needed (Continuous Passive Motion knee machine) Care,Mary Senior [NON-STAFF] - As Needed Activity/Diet/Wound Care/Special Instructions: Orthopedic Discharge Instructions: 1. Wound care and infection precautions, keep incision dry and covered while showering, no lotions, creams, moisturizers. No soaking, pools, hot tubs. Do not scrub over incision. 2. Weight-bear as tolerated with walker / cane until follow-up. 3. Ice and elevate when necessary. Do not exceed 20 minutes per hour with ice pack. 4. Utilize compression sleeve until seen at first follow up appointment. 5. Pain meds and anticoagulants per prescription. 6. Pain medication has potential to cause constipation. Increase oral fluid and fiber intake. Contact primary care provider if you have not had a bowel movement within 48 hours after discharge. 7. No anti-inflammatory medication until discussed at first post operative visit, this including Motrin, Aleve, Mobic, Diclofenac. 8. Follow up in office at 2 weeks postop with Feroz Ziegler PA-C/Dani Klein PA-C 9. Follow up with your primary care doctor 7-10 days after discharge. 10. Contact [facility] with any questions, . Discharge Disposition: HOME WITH HOME HEALTH SERVICES
--- NOTE | 2021-12-22 10:10 | P.PN ---
Subjective Progress Note Date: 12/21/21 - Reason for Consult Consult date: 12/20/21 Medical management postop right knee arthroplasty - History of Present Illness This is a pleasant 61-year-old female who follows with Dr. Peterson in the outpatient setting as her primary care provider and was recently admitted under orthopedic services for elective right total knee arthroplasty and is being closely monitored. Patient reports a past medical history of hypertension, hypothyroidism, and anxiety and follows with Dr. Peterson outpatient. Patient did to her presurgical clearance with her primary care provider prior to surgery. Patient was able to work with physical therapy today with some increasing pain and is being evaluated and monitored overnight with possible discharge in 24 hours. Recommend resuming home medications and monitoring vital signs closely. Incentive spirometer encouraged at least 10 times every hour while awake. Recommend physical therapy working daily with possible discharge in 24 hours. Recommend outpatient follow-up with primary care provider on discharge. WBC mildly elevated at 10.6 for most likely reactive as patient is afebrile denies chest pain or shortness of breath. Patient denies dysuria or pain with urination. 12/21/2021 Patient is seen and evaluated in follow-up this morning reporting her pain is better managed and was able to work with physical therapy doing better and plan is for patient to go home today. Patient instructed to continue using incentive spirometer at least 10 times every hour while awake and also continue to elevate lower extremities and ice as needed along with pain management per orthopedics. Patient also encouraged to follow-up with primary care provider and continue with home medications as prescribed. Patient reports she is passing gas and did have a bowel movement this morning. Patient is voiding with no difficulties. Encouraged increased activity as tolerated and also encouraged oral intake. Patient reports she is tolerating diet with no reports of nausea or vomiting noted. Patient denies chest pain, shortness of breath, or palpitations at this time. Patient is afebrile. Review of systems: Constitutional: No reports of fatigue, fever, or chills Cardiovascular: No reports of chest pain or palpitations Respiratory: No reports of shortness of breath or cough GI: No reports of nausea, no reports of of vomiting, reports passing some gas and a bowel movement this morning : No reports of dysuria or retention Neurovascular: reports of generalized weakness, and some right knee pain although feels improved from yesterday All medications have been reviewed PHYSICAL EXAMINATION: GENERAL: The patient is alert and oriented x4, Well developed, well nourished. Morbidly obese HEENT: Pupils are round and equally reacting to light. EOMI. no scleral icterus. No conjunctival pallor. Normocephalic, atraumatic. No pharyngeal erythema. No thyromegaly. CARDIOVASCULAR: S1 and S2 muffled PULMONARY: diminished breath sounds bilaterally with no wheezing or rhonchi noted. ABDOMEN: soft. Nontender on exam. obese. non-distended, normoactive bowel sounds. No palpable organomegaly. MUSCULOSKELETAL: No joint swelling or deformity. EXTREMITIES: No cyanosis, clubbing, or pedal edema. Right knee dressing is currently dry and intact with ice pack noted an elevated on some pillows NEUROLOGICAL: Gross neurological examination did not reveal any focal deficits. Diffuse weakness SKIN: No rashes. Assessment: Status post right total knee arthroplasty postop day 2 Mild leukocytosis, most likely reactive secondary to above History of hypertension Hypothyroidism Osteoarthritis History of anxiety GI prophylaxis: Protonix DVT prophylaxis, on Xarelto Full code Plan: Recommend to continue with current medications and management per orthopedic services. Recommend resuming home medications and monitoring vital signs closely. Patient with an incentive spirometer at the bedside and encourage the patient to continue using at least 10 times every hour while awake. Recommend physical therapy daily and patient was able to work with physical therapy today reporting improvement and reports she will be going home.. Recommend elevating right lower extremity and continue with ice packs and pain management per orthopedic services. Patient reports she is passing gas and did have a bowel movement today. Patient follows with Dr. Peterson in the outpatient setting and recommend outpatient follow-up on discharge. We will continue to follow with orthopedics during hospitalization. Thank you for this consultation. Patient is being discharged today. The impression and plan of care has been dictated by Dejah Zarate, nurse practitioner as directed. Dr. Kirby DALTON I have performed a history and examination and MDM of this patient, discussed the same with the dictator, and agree with the dictator's assessment and plan as written ,documented as a scribe. Based on total visit time, I have performed more than 50% of the visit. Any additional findings or plans will be noted. Objective - Vital Signs Vital signs: Vital Signs Temp 98.2 F 12/21/21 08:00 Pulse 94 12/21/21 08:00 Resp 18 12/21/21 08:00 BP 165/82 12/21/21 08:00 Pulse Ox 95 12/21/21 08:00 FiO2 Intake & Output 12/20/21 12/21/21 12/21/21 18:59 06:59 18:59 Other: Voiding Method Toilet Toilet # Voids 3 2 - Labs CBC & Chem 7: 12/20/21 06:52 Labs: Abnormal Lab Results - Last 24 Hours (Table) 12/20/21 Range/Units 06:52 WBC 10.64 H (4.50-10.00) X 10*3/uL RBC 4.03 L (4.10-5.20) X 10*6/uL Hgb 11.7 L (12.0-15.0) g/dL Hct 36.3 L (37.2-46.3) % MPV 9.0 L (9.5-12.2) fL Eosinophils # 0.03 L (0.04-0.35) X 10*3/uL
== END 2021-12-21 13:52 | disposition home health service (06) ==
LOC: OR 05:58 → 4SSUR 09:31 → OR 12-20 07:49 → 4SSUR 12-20 07:49
PROVIDERS: ADMIT Orthopaedic Surgery; ATTEND Orthopaedic Surgery
DX: M17.11 Unilateral primary osteoarthritis, right knee (principal); I10 Essential (primary) hypertension; D72.829 Elevated white blood cell count, unspecified; E03.9 Hypothyroidism, unspecified; F41.9 Anxiety disorder, unspecified; E66.9 Obesity, unspecified; Z68.42 Body mass index [BMI] 45.0-49.9, adult; Z98.891 History of uterine scar from previous surgery; Z90.49 Acquired absence of other specified parts of digestive tract; Z98.890 Other specified postprocedural states; Z80.9 Family history of malignant neoplasm, unspecified; Z79.890 Hormone replacement therapy; Z79.899 Other long term (current) drug therapy
CPT/HCPCS: 27447; 97161; 64999; 64448; 76942; 85025; 88300; 73560; G0378 ×2; C1713 ×2; C1776; J2250; J1100; J0690 ×2; J2405; J3010; J1170 ×4; J2795 ×2; J2370; J2704; J2001

== ENCOUNTER → 2024-10-20 | Day surgery (SDC) | payer BC, OTHER ==
[~2024-10-20] MED LIST changes: -ACETAMINOPHEN TAB 500 MG TAB PO PRN; -HYDROmorphone 0.5 MG/0.5 ML SYRINGE IVP PRN; -LIDOCAINE 1% (10MG/ML) FOR IV START INTRADERMA PRN; -MELOXICAM 7.5 MG TAB PO PRN; -ONDANSETRON 4 MG/2 ML VIAL IVP ONE; +PROPOFOL 10 MG/ML 20 ML VIAL IV ONE; -TRANEXAMIC ACID IN NACL,ISO-OS 1,000 MG in SALINE 1 100ML.BAG IVPB PRN; -ceFAZolin 3 GM in SODIUM CHLORIDE 0.9% 100 ML IVPB PRN
[2024-10-20] MEDS: IV FLUID CONTINUATION 1,000 ML IV ONE (09:13)
[2024-10-20] MEDS: LACTATED RINGERS 1,000 ML IV SCH (09:27)
[2024-10-20 09:31] VITALS: RESP 16; TEMP 96.9
--- NOTE | 2024-10-20 10:05 | P.PCN ---
Date of Procedure: 10/20/24 Procedure(s) Performed: BRIEF HISTORY: Patient is a 64-year-old pleasant white female scheduled for an elective colonoscopy as a part of screening for colon cancer. PROCEDURE PERFORMED: Colonoscopy with snare polypectomy. PREOPERATIVE DIAGNOSIS: Screening for colon cancer. IV sedation per Anesthesia. PROCEDURE: After informed consent was obtained, the patient, was brought into the endoscopy unit. IV sedation was administered by Anesthesia under continuous monitoring. Digital rectal examination was normal. Initially the Olympus CF-160 flexible video colonoscope was then inserted in the rectum, gradually advanced into the cecum without any difficulty. Careful examination was performed as the scope was gradually being withdrawn. Ileocecal valve and the appendiceal orifice were visualized and appeared normal. Prep was excellent. Mucosa of the cecum, appeared normal. In the ascending colon there was a 1 cm broad-based polyp removed by hot snare polypectomy. Rest of the ascending colon, transverse colon, descending colon, appeared normal. In the sigmoid colon there was a 5 mm polyp removed by cold snare polypectomy. Rest of the sigmoid colon, and rectum appeared normal. Retroflexion was performed in the rectum and no lesions were seen. The patient tolerated the procedure well. IMPRESSION: 1 cm broad-based ascending colon polyp status post hot snare polypectomy 5 mm sigmoid colon polyp status post cold snare polypectomy Rest of the colon appeared normal RECOMMENDATIONS: Findings of this examination were discussed with the patient as well as her family. She was advised to follow-up with the biopsy results. If the biopsy reveals adenoma she can have repeat colonoscopy 3 years..
[2024-10-20 10:09] VITALS: BP 126/68; PULSE 76
== END ==
LOC: ORWHC2ENDO 08:50
PROVIDERS: ATTEND Internal Medicine Gastroenterology
DX: Z12.11 Encounter for screening for malignant neoplasm of colon (principal); D12.2 Benign neoplasm of ascending colon; I10 Essential (primary) hypertension; E07.9 Disorder of thyroid, unspecified; F41.9 Anxiety disorder, unspecified; E66.01 Morbid (severe) obesity due to excess calories; Z79.890 Hormone replacement therapy; Z79.899 Other long term (current) drug therapy
CPT/HCPCS: 88305; 45385; J2704